=== PATIENT | male | born 1950 | race Caucasian/White ===

== ENCOUNTER → 2025-02-08 11:31 | Outpatient (BNVA) | payer MEDICARE, SELFPAY | PROVIDERS: PCP Family Medicine; Referring Provider Family Medicine; Visit Provider Internal Medicine Cardiovascular Disease | DX: R06.09 Other forms of dyspnea (principal); I10 Essential (primary) hypertension; I27.20 Pulmonary hypertension, unspecified; R53.83 Other fatigue; I77.810 Thoracic aortic ectasia; I25.2 Old myocardial infarction; R07.9 Chest pain, unspecified | CPT/HCPCS: 93005; 99204 ==

== ENCOUNTER 2025-02-16 08:50 | Outpatient (CLI) | payer MEDICARE, SELFPAY ==
--- NOTE | 2025-02-16 | ECG_ITS ---
[place] Test Date: 2025-02-16 Pat Name: Yonis Gomez Department: Room: Gender: Male Final Inspector Paper: : 1950 Requested By: Maurice Handy Order Number: [id number] Xu MD: Maurice Handy M.D. Interpretive Statements Lung unchanged pre/post procedure; Intraprocedure shortess of breath; Symptoms resoled by discharge PROCEDURE: At the baseline, the EKG revealed sinus bradycardia with a first-degree AV block. Heavy baseline artifact. Some nonspecific ST-T changes. The baseline heart was 50 bpm with a blood pressue of 136/89 mm of Hg Lexiscan was infused over a period of 20 seconds. A total of 0.4 milligrams of Lexiscan was infused. The stress phase was continued for a total of 5 minutes. Heart rate at the end of the stress phase was 72 bpm with a blood pressure 138/83 mm of Hg. The EKG at the peak infusion revealed no significant changes. Sestamibi was injected 20 seconds after the Lexiscan infusion. Heart rate at the end of the recovery phase was 71 bpm with a blood pressure of 137/83 mm of Hg. CONCLUSION: 1. No significant EKG changes with the LexiScan infusion 2. No LexiScan induced chest pain or cardiac arrhythmia 3. Normal blood pressure and heart rate response 4. Sestamibi/sestamibi perfusion scan pending; see separate report. Electronically Signed On 02-16-2025 22:24:27 CDT by Maurice Handy M.D. [email or web address]
[2025-02-16 09:06] VITALS: BMI 30.5
--- NOTE | 2025-02-16 09:08 | NMCV_ITS ---
NM naveed perf SPECT r/s* [id number] Yonis Gomez Age: 74 Gender: M : 1950 Exam Date: 02/16/2025 10:00 Ordering Phys: Maurice Handy MD ([email or web address]) Technologist: YENNY Armas Exam Location: [facility] Indications: cp STRESS TEST [facility] IMAGE PROTOCOL Rest/Stress 1 Lexiscan Day Radiopharmaceutical Dose (mCi) Administration Site Administered by Rest: Tc-99m 11 IV YENNY Armas Sestamibi Stress:Tc-99m 32.4 IV YENNY Gil Sestamibi Rest: 16-Feb-2025 60 Discovery 630 Stress: 16-Feb-2025 30 Discovery 630 0.4mg Lexiscan. Images obtained in supine and prone position. SPECT RESULTS Technical Quality: Good Raw Data Analysis: Normal Image Corrections: No attenuation or motion correction applied Summed Stress Score: 2 Summed Rest Score: 5 Summed Difference Score: 0 PERFUSION FINDINGS Patchy areas of persistent decreased tracer uptake in the lateral wall and apical regions FUNCTIONAL RESULTS (calculated via Gated SPECT) Stress Image LV EF (%): 56 Stress EDV (mL):147 TID: 0.99 Stress ESV (mL):64 FUNCTIONAL FINDINGS: Segmental wall motion analysis revealing no gross wall motion abnormalities IMPRESSIONS 1. Myocardial perfusion imaging revealing patchy areas of persistent decreased tracer uptake in the apical regions suggesting myocardial scarring versus attenuation artifact. 2. Normal LV ejection fraction of 56%. 3. LV wall motion analysis revealing no gross wall motion abnormalities. 4. Mildly dilated LV cavity Low probability for coronary ischemia, based on the above findings Dr Maurice Handy MD FACC (Electronically Signed) Final Date: 16 February 2025 14:50 S
[2025-02-16 10:39] VITALS: BP 137/83; PULSE 69
== END 2025-02-16 08:51 | disposition home or self-care (01) ==
PROVIDERS: PCP Family Medicine; Visit Provider Internal Medicine Cardiovascular Disease
DX: R07.9 Chest pain, unspecified (principal); R53.83 Other fatigue; R06.02 Shortness of breath; I51.7 Cardiomegaly; R94.39 Abnormal result of other cardiovascular function study; I51.89 Other ill-defined heart diseases
CPT/HCPCS: 36415; 78452; 93017; 96374; A9500; J2785

== ENCOUNTER 2025-02-19 09:01 | Outpatient (CLI) | payer MEDICARE, SELFPAY ==
--- NOTE | 2025-02-19 09:00 | CTR_ITS ---
PROCEDURE INFORMATION: Exam: CTA Chest With Contrast CTA Abdomen and Pelvis With Contrast Exam date and time: 02/19/2025 9:36 AM Age: 74 years old Clinical indication: Condition or disease; Other: Severe ascending aortic dilatation, prior surgery; Surgery date: 6+ months; Surgery type: Left shoulder; Additional info: Severe ascending aortic dilatation, cta- thoracic aorta TECHNIQUE: Imaging protocol: Computed tomographic angiography of the chest with contrast. Exam focused on the arteries. Computed tomographic angiography of the abdomen and pelvis with contrast. Exam focused on the arteries. 3D rendering (Not supervised by radiologist): MIP and/or 3D reconstructed images were created by the technologist. Radiation optimization: All CT scans at this facility use at least one of these dose optimization techniques: automated exposure control; mA and/or kV adjustment per patient size (includes targeted exams where dose is matched to clinical indication); or iterative reconstruction. Contrast material: OMNI 350; Contrast volume: 100 ml; Contrast route: INTRAVENOUS (IV); COMPARISON: No relevant prior studies available. RADIATION DOSE METRICS: Total DLP (mGy-cm): 1905.78 FINDINGS: VASCULATURE: Pulmonary arteries: Normal. No pulmonary emboli. Aorta: There is mild aneurysmal dilatation of the ascending thoracic aorta measuring 4.7 cm maximum AP dimension. The descending thoracic aorta measures 3.1 cm AP dimension. No aortic dissection. Celiac and mesenteric arteries: There is moderate diffuse atherosclerotic calcification of the splenic artery with less than 50% luminal stenosis. There is mild atherosclerotic calcification of the remainder of the celiac axis. There is mild atherosclerotic calcification of the superior mesenteric artery with less than 50% luminal stenosis. No occlusion. Renal arteries: No occlusion or significant stenosis. Right iliac arteries: Very mild atherosclerotic calcification. No occlusion or significant stenosis. Left iliac arteries: Very mild atherosclerotic calcification. Moderate No occlusion or significant stenosis. CHEST: Lungs: Unremarkable. No consolidation. No masses. Pleural spaces: Unremarkable. No pneumothorax. No pleural effusion. Heart: Mildly enlarged. No pericardial effusion. Moderate coronary arterial calcification. ABDOMEN AND PELVIS: Liver: No mass. Gallbladder and biliary ducts: Unremarkable. No calcified stones. No ductal dilation. Pancreas: Unremarkable. No mass. No ductal dilation. Spleen: Unremarkable. No splenomegaly. Adrenal glands: Unremarkable. No mass. Kidneys and ureters: There is a 4 cm cyst in the right kidney. No solid mass. No hydronephrosis. Stomach and bowel: There is a small hiatal hernia. Small and large bowel loops are normal in caliber. No obstruction. There are a few diverticula involving the descending and sigmoid colon without surrounding inflammation to suggest acute diverticulitis. Appendix: No evidence of appendicitis. Intraperitoneal space: Unremarkable. No free air. No significant fluid collection. Urinary bladder: Unremarkable. No mass. Reproductive: The prostate gland is enlarged. Lymph nodes: Unremarkable. No enlarged lymph nodes. Bones/joints: Intact. No acute fracture. There are diffuse degenerative changes throughout the lumbar spine, particularly at L2-L3 where there is mild grade 1 retrolisthesis, and at L4-L5 and L5-S1. There are mild degenerative changes involving the thoracic spine. Soft tissues: There are small fat containing bilateral inguinal hernias and a tiny fat containing umbilical hernia. CT/CT [facility] [id number] IMPRESSION: 1. Mild aneurysmal dilatation of the ascending thoracic aorta measuring 4.7 cm AP dimension. 2. No abdominal aortic aneurysm. 3. Kirk-ot-vopidpyb diffuse atherosclerotic calcification. No significant luminal stenosis or occlusion. 4. Moderate coronary arterial calcification. 5. Other chronic findings described above. COMMENTS: Consistent with the [employer]'s Incidental Findings Committee white paper (J Am Pennie Radiol 2018): Any incidental renal lesion less than 1 cm or classified as too small to characterize, or any incidental cystic renal lesion characterized as simple-appearing, is likely benign. No follow-up imaging is recommended for these lesions per consensus recommendations based on imaging criteria.
[2025-02-19] MEDS: iohexol 350 mg/mL 500 mL Btl (per mL) IV (09:23)
[2025-02-19 09:46] LABS: Blood Urea Nitrogen 17 mg/dL (8-23)
== END 2025-02-19 09:02 | disposition home or self-care (01) ==
LOC: RAD 09:02
PROVIDERS: PCP Family Medicine; Visit Provider Internal Medicine Cardiovascular Disease
DX: I77.810 Thoracic aortic ectasia (principal); I70.0 Atherosclerosis of aorta; I25.10 Atherosclerotic heart disease of native coronary artery without angina pectoris; N28.1 Cyst of kidney, acquired; K44.9 Diaphragmatic hernia without obstruction or gangrene; K57.30 Diverticulosis of large intestine without perforation or abscess without bleeding; M47.816 Spondylosis without myelopathy or radiculopathy, lumbar region; K40.20 Bilateral inguinal hernia, without obstruction or gangrene, not specified as recurrent
CPT/HCPCS: 71275; 74174; 82565; 84520